=== PATIENT | male | born 1930 | race Two or more races ===

== ENCOUNTER → 2018-08-04 | Outpatient (CLI) | payer OTHER | END | disposition home or self-care (01) | LOC: RAD 501 15:02 | DX: R05 Cough (principal) ==

== ENCOUNTER → 2018-08-12 | Outpatient (CLI) | payer OTHER | END | disposition home or self-care (01) | LOC: RAD 501 10:19 | DX: M25.512 Pain in left shoulder (principal); M25.522 Pain in left elbow ==

== ENCOUNTER 2018-09-01 15:32 | Outpatient (CLI) | payer OTHER | END 2018-09-01 15:42 | disposition home or self-care (01) | LOC: RAD 501 15:32 | DX: M25.551 Pain in right hip (principal) ==

== ENCOUNTER 2018-09-02 11:15 | Outpatient (CLI) | payer OTHER | END 2018-09-02 17:00 | disposition home or self-care (01) | LOC: MRI 11:15 | DX: M62.81 Muscle weakness (generalized) (principal); Z91.81 History of falling | CPT/HCPCS: 70551 ==

== ENCOUNTER 2019-08-27 06:30 | Outpatient (CLI) | payer OTHER | END 2019-08-27 07:07 | disposition home or self-care (01) | LOC: LAB 06:30 | DX: E78.49 Other hyperlipidemia (principal); C61 Malignant neoplasm of prostate; I10 Essential (primary) hypertension; E11.9 Type 2 diabetes mellitus without complications; E55.9 Vitamin D deficiency, unspecified; Z13.29 Encounter for screening for other suspected endocrine disorder ==

== ENCOUNTER 2019-08-28 09:12 | Outpatient (CLI) | payer OTHER | END 2019-08-28 09:24 | disposition home or self-care (01) | LOC: NUCLEAR 09:12 | DX: M81.0 Age-related osteoporosis without current pathological fracture (principal) ==

== ENCOUNTER 2019-09-05 07:08 | Outpatient (CLI) | payer OTHER | END 2019-09-05 07:18 | disposition home or self-care (01) | LOC: LAB 07:08 | DX: M79.18 Myalgia, other site (principal) ==